=== PATIENT | female | born 1930 ===

== ENCOUNTER 2017-05-11 10:35 | Emergency (ER) | payer OTHER ==
[~2017-05-11] VITALS: Ht 162.6 cm; Wt 63.5 kg
[~2017-05-11 10:35] MED LIST: ASA81 MG; AVAPRO150 MG; AVAPRO300 MG PO; CATAPRES0.1 MG PO; LEVAQUIN500 MG PO; NEPHROCAPS CAPSU1 MG PO; NORVASC5 MG; NORVASC5 MG PO; SIDEROL TABLET1 TAB; SIDEROL TABLET1 TAB PO; SIMVASTATIN5 MG PO; TUSSIONEX PENNKI5 ML PO; XOPENEX1.25 MG/0. IH; ZOLOFT25 MG
== END 2017-05-11 14:12 | disposition home or self-care (01) ==
LOC: ER 10:35
DX: S92.354A Nondisplaced fracture of fifth metatarsal bone, right foot, initial encounter for closed fracture (principal); X50.9XXA Other and unspecified overexertion or strenuous movements or postures, initial encounter; Y93.89 Activity, other specified; Y92.89 Other specified places as the place of occurrence of the external cause; Y99.8 Other external cause status

== ENCOUNTER 2017-06-22 09:52 | Emergency (ER) | payer OTHER ==
[~2017-06-22] VITALS: Ht 157.5 cm; Wt 68.0 kg
[2017-06-22] MEDS ORDERED: EXELON1 EAC1 (10:23)
== END 2017-06-22 14:24 | disposition home or self-care (01) ==
LOC: ER 09:52
DX: R53.81 Other malaise (principal)

== ENCOUNTER → 2017-07-20 | Emergency (ER) | payer OTHER ==
[~2017-07-20] MED LIST changes: +EXELON1 EAC1
== END | disposition left against medical advice (07) ==
LOC: ER 11:33
DX: Z53.20 Procedure and treatment not carried out because of patient's decision for unspecified reasons (principal)

== ENCOUNTER → 2017-07-24 | Outpatient (CLI) | payer OTHER | END | disposition home or self-care (01) | LOC: MRI 09:15 | DX: M25.561 Pain in right knee (principal); D49.0 Neoplasm of unspecified behavior of digestive system; K85.90 Acute pancreatitis without necrosis or infection, unspecified | CPT/HCPCS: 73721; 74183 ==

== ENCOUNTER 2018-02-16 10:27 | Emergency (ER) | payer OTHER ==
[~2018-02-16] VITALS: Ht 157.5 cm; Wt 67.6 kg
== END 2018-02-16 16:22 | disposition home or self-care (01) ==
LOC: ER 10:27
DX: R05 Cough (principal)